=== PATIENT | female | born 1990 | race Caucasian/White ===

== ENCOUNTER 2018-07-21 08:06 | Emergency (ER) | payer OTHER ==
[~2018-07-21] VITALS: Ht 154.9 cm; Wt 63.5 kg
== END 2018-07-21 13:54 | disposition home or self-care (01) ==
LOC: ER 08:06
DX: H66.91 Otitis media, unspecified, right ear (principal)

== ENCOUNTER 2020-11-14 02:07 | Emergency (ER) | payer OTHER ==
[~2020-11-14] VITALS: Ht 154.9 cm; Wt 56.7 kg
[2020-11-14] MEDS ORDERED: PEPCID40 MG PO (07:22)
[2020-11-14] MEDS ORDERED: LEVSIN/SL0.125 MG SL (07:22)
== END 2020-11-14 07:44 | disposition home or self-care (01) ==
LOC: ER 02:07
DX: K80.80 Other cholelithiasis without obstruction (principal); R10.11 Right upper quadrant pain

== ENCOUNTER 2020-12-19 07:31 | Outpatient (CLI) | payer OTHER ==
[~2020-12-19 07:31] MED LIST: LEVSIN/SL0.125 MG SL; PEPCID40 MG PO
== END 2020-12-19 08:07 | disposition home or self-care (01) ==
LOC: NUCLEAR 07:31
PROVIDERS: ATTEND Surgery
DX: R10.11 Right upper quadrant pain (principal)
CPT/HCPCS: 78226; A9537

== ENCOUNTER → 2021-04-11 | Outpatient (CLI) | payer OTHER | END | disposition home or self-care (01) | LOC: MAMO-SONO 09:25 → SONOGRAMA 09:59 | PROVIDERS: ATTEND Internal Medicine Gastroenterology | DX: R10.13 Epigastric pain (principal); K80.20 Calculus of gallbladder without cholecystitis without obstruction ==

== ENCOUNTER 2021-05-28 05:40 | Day surgery (SDC) | payer OTHER ==
[2021-05-28] MEDS ORDERED: PERCOCET 5-3251 EACH PO (07:53)
[2021-05-28] MEDS ORDERED: POLY119PG PO (07:54)
[2021-05-28] MEDS ORDERED: SURFAK240 M1 PO (07:54)
[2021-05-28] MEDS ORDERED: PEPCID AC20 MG PO (07:54)
== END 2021-05-28 11:50 | disposition home or self-care (01) ==
LOC: CIR.AMB 05:40
PROVIDERS: ATTEND Surgery
DX: K80.10 Calculus of gallbladder with chronic cholecystitis without obstruction (principal); K43.9 Ventral hernia without obstruction or gangrene; K42.9 Umbilical hernia without obstruction or gangrene; Z20.822 Contact with and (suspected) exposure to COVID-19

== ENCOUNTER 2021-06-11 10:59 | Emergency (ER) | payer OTHER ==
[~2021-06-11] VITALS: Ht 154.9 cm; Wt 61.7 kg
[~2021-06-11 10:59] MED LIST changes: +PEPCID AC20 MG PO; +PERCOCET 5-3251 EACH PO; +POLY119PG PO; +SURFAK240 M1 PO
[2021-06-11] MEDS ORDERED: PEPCID AC20 MG PO (18:41)
[2021-06-11] MEDS ORDERED: INTESTINEX680 M1 PO (18:41)
[2021-06-11] MEDS ORDERED: LEVSIN/SL0.125 MG PO (18:41)
[2021-06-11] MEDS ORDERED: DIPHENOXYLATE-1 EACH PO (18:41)
== END 2021-06-11 19:17 ==
LOC: ER 10:59
DX: K52.9 Noninfective gastroenteritis and colitis, unspecified (principal); E86.0 Dehydration

== ENCOUNTER → 2022-07-03 | Outpatient (CLI) | payer OTHER ==
[~2022-07-03] MED LIST changes: +DIPHENOXYLATE-1 EACH PO; +INTESTINEX680 M1 PO; +LEVSIN/SL0.125 MG PO
== END | disposition home or self-care (01) ==
LOC: NST 13:37
PROVIDERS: ATTEND Obstetrics & Gynecology Maternal & Fetal Medicine
DX: Z34.83 Encounter for supervision of other normal pregnancy, third trimester (principal)

== ENCOUNTER 2022-07-16 15:27 | Outpatient (CLI) | payer OTHER | END 2022-07-16 16:35 | disposition home or self-care (01) | LOC: NST 15:27 | PROVIDERS: ATTEND Obstetrics & Gynecology Gynecology | DX: Z34.83 Encounter for supervision of other normal pregnancy, third trimester (principal) ==

== ENCOUNTER 2022-07-30 12:45 | Outpatient (CLI) | payer OTHER | END 2022-07-30 13:26 | disposition home or self-care (01) | LOC: NST 12:45 | PROVIDERS: ATTEND Obstetrics & Gynecology Gynecology | DX: Z34.83 Encounter for supervision of other normal pregnancy, third trimester (principal) ==

== ENCOUNTER 2022-08-07 13:14 | Outpatient (CLI) | payer OTHER | END 2022-08-07 13:53 | disposition home or self-care (01) | LOC: NST 13:14 | PROVIDERS: ATTEND Obstetrics & Gynecology Gynecology | DX: Z34.83 Encounter for supervision of other normal pregnancy, third trimester (principal) ==

== ENCOUNTER 2022-08-13 15:52 | Outpatient (CLI) | payer OTHER | END 2022-08-13 16:48 | disposition home or self-care (01) | LOC: NST 15:52 | PROVIDERS: ATTEND Obstetrics & Gynecology | DX: Z34.83 Encounter for supervision of other normal pregnancy, third trimester (principal) ==

== ENCOUNTER 2022-08-25 15:29 | Inpatient (IN) | payer OTHER ==
[~2022-08-25] VITALS: Ht 154.9 cm; Wt 3.2 kg
[2022-08-25] MEDS ORDERED: PRENATAL TABLE1 EAC1 PO (19:10)
[2022-08-26] MEDS ORDERED: METFORMIN HCL500 M4 (08:07)
[2022-08-26] MEDS ORDERED: MONTELUKAST SOD10 MG (08:07)
== END 2022-08-29 13:29 | disposition home or self-care (01) | DRG 788 ==
LOC: LDR 15:29 → O/R 08-26 07:54 → OB/GYN 08-26 08:29
PROVIDERS: ADMIT Obstetrics & Gynecology; ATTEND Obstetrics & Gynecology
PROC: 10D00Z1 Extraction of Products of Conception, Low, Open Approach (ICD-10-PCS; principal; 2022-08-25)
PROC: 4A1HXCZ Monitoring of Products of Conception, Cardiac Rate, External Approach (ICD-10-PCS; 2022-08-25)
DX: O34.211 Maternal care for low transverse scar from previous cesarean delivery (principal); O62.0 Primary inadequate contractions; Z3A.38 38 weeks gestation of pregnancy; Z37.0 Single live birth; Z20.822 Contact with and (suspected) exposure to COVID-19

== ENCOUNTER 2022-11-08 14:29 | Emergency (ER) | payer OTHER ==
[~2022-11-08] VITALS: Ht 154.9 cm; Wt 55.3 kg
[~2022-11-08 14:29] MED LIST changes: +DULCOLAX10 MG; +METFORMIN HCL500 M4; +MONTELUKAST SOD10 MG; +PRENATAL TABLE1 EAC1 PO; +[UNRECOGNIZED DRUG - OTHER]
== END 2022-11-08 16:54 | disposition home or self-care (01) ==
LOC: ER 14:29
DX: K59.00 Constipation, unspecified (principal)